=== PATIENT | male | born 1955 | race Caucasian/White ===

== ENCOUNTER → 2016-06-02 | Outpatient (CLI) | payer BC ==
--- NOTE | 2016-06-02 09:28 | CT ---
EXAMINATION TYPE: CT sinus wo con DATE OF EXAM: 06/02/2016 9:16 AM COMPARISON: NONE HISTORY: sinus congestion CT DLP: 628.7 mGycm Automated exposure control for dose reduction was used. FINDINGS: There is moderate mucosal thickening involving the ethmoid air cells and maxillary sinuses. Soft tiss ue density in the right maxillary sinus likely represents a large mucous retention cyst or polyp. Ost ium of the maxillary sinus appears occluded on the left. Appears patent on the right. Slight nasal septal deviation. No air-fluid levels. Visualized nasopharynx and oropharynx symmetric. Intracranial and intraorbital s tructures have a normal appearance. IMPRESSION: CHANGES OF MODERATE CHRONIC SINUSITIS. SINONASAL POLYPOSIS IN THE DIFFERENTIAL.
== END ==
LOC: RADCTMAIN 09:02
PROVIDERS: ATTEND Otolaryngology
DX: J32.9 Chronic sinusitis, unspecified (principal)
CPT/HCPCS: 70486

== ENCOUNTER 2016-08-06 08:03 | Day surgery (SDC) | payer BC ==
[2016-07-31 15:10] VITALS: BMI 33.3
[~2016-08-06 08:03] MED LIST: DEXAMETHASONE SOD PHOSPHATE 10 MG/ML 1 ML VIAL IV ONE; DEXAMETHASONE SOD PHOSPHATE 4 MG/ML 1 ML VIAL IV ONE; FAMOTIDINE 20 MG/2 ML VIAL IV ONE; LACTATED RINGERS 1,000 ML IV SCH; MIDAZOLAM 2 MG/2 ML VIAL IV PRN; ONDANSETRON 4 MG/2 ML VIAL IVP ONE
[2016-08-06] MEDS: OXYMETAZOLINE 0.05% NASL SPRAY 15 ML NASAL ONE ×5 (08:21→08:50)
[2016-08-06] MEDS ORDERED: LIDOCAINE 1% 20 ML VIAL (10MG/ML) FOR IV START INTRADERMA ONE (08:36)
[2016-08-06] MEDS ORDERED: ePHEDrine 50 MG/ML 1 ML AMP ONE (08:53)
[2016-08-06] MEDS ORDERED: GLYCOPYRROLATE 0.2 MG/ML 2 ML VIAL ONE (08:53)
[2016-08-06] MEDS ORDERED: MIDAZOLAM 2 MG/2 ML VIAL ONE (08:53)
[2016-08-06] MEDS ORDERED: fentaNYL (PF) 50 MCG/ML 2 ML AMP ONE (08:53)
[2016-08-06] MEDS ORDERED: DEXAMETHASONE SOD PHOS (MDV) 100 MG/10 ML VIAL ONE (08:53)
[2016-08-06] MEDS ORDERED: LIDOCAINE 1% INJ 10MG/ML (20 ML MDV) ONE (08:53)
[2016-08-06] MEDS ORDERED: PHENYLEPHRINE-0.9% NACL SYG 1 MG/10 ML SYRINGE ONE (08:53)
[2016-08-06] MEDS ORDERED: PROPOFOL 10 MG/ML 20 ML VIAL IV ONE (08:53)
[2016-08-06] MEDS ORDERED: SUCCINYLCHOLINE CHLORIDE 100 MG/5 ML SYR IV ONE (08:53)
[2016-08-06] MEDS ORDERED: ceFAZolin 1,000 MG in DEXTROSE/WATER 1 50ML.BAG IVPB ONE (09:00)
[2016-08-06] MEDS ORDERED: LIDOCAINE 1%-EPI 1:100,000 20 ML VIAL SUBMUCOSAL ONE (09:04)
[2016-08-06] MEDS ORDERED: LACTATED RINGERS 1,000 ML IV ONE (09:40)
--- NOTE | 2016-08-06 09:58 | P.OP ---
Date of Procedure: 08/06/16 Preoperative Diagnosis: Chronic sinusitis Deviated nasal septum Postoperative Diagnosis: Same Procedure(s) Performed: Septoplasty Bilateral endoscopic sinus surgery including bilateral maxillary antrostomy with removal of tissue from the maxillary sinuses bilateral anterior and posterior ethmoidectomy Implants: Anesthesia: GETA Surgeon: Vik Modi Estimated Blood Loss (ml): 20 Pathology: other (Nasal septal bone and cartilage and sinus contents) Condition: stable Disposition: PACU Indications for Procedure: This is a 60-year-old white male who has difficulties with chronic nasal airway obstruction congestion and chronic sinusitis Operative Findings: Septum deviated to the left, mucosal inflammation of the maxillary sinuses diffusely, and ethmoid labyrinths with polyps in the ethmoid sinuses diffusely bilaterally, large cyst in the right maxillary sinus which was removed Description of Procedure: The patient was brought in the operative suite and placed in a supine patient. Patient underwent induction of general anesthesia with oral endotracheal intubation without difficulty. The patient was prepped and draped in usual aseptic fashion. The orbits were in the operating field for monitoring throughout the case and computed tomography scan was on the computer screen for review throughout the case also. 1% lidocaine with 1-100,000 epinephrine was infused submucosally both sides nasal septum as well as lateral nasal wall and anterior tips of the middle turbinates bilaterally. While this is creating vasoconstrictive effect 0 endoscopic evaluation was performed bilaterally. A left hemitransfixion incision was made with the mucoperichondrial flap on the left elevated. There was some cartilaginous septal deformity to the left and this was removed leaving a full 1.5 cm caudal strut. Checking intranasally this corrected the nasoseptal deformities and the hemitransfixion incision was closed running 4-0 chromic suture. Note that done the bony nasal septum had removal of tissue already from previous septoplasty. Beginning on the left the middle turbinate was medialized with a Whiting elevator. Maxillary ostium was located with a ballpoint probe and infundibulotomy was performed followed by uncinectomy. The maxillary sinus was evaluated a 30 and 70 endoscope with tissue removed from the maxillary sinus with giraffe forceps. Anterior and posterior ethmoidectomy then performed from anterior to posterior to the level of the skull base. This included polypectomy. The nasal frontal duct was noted to be patent. Once this was completed attention was turned to the right where the procedures were followed as they were on the left including medialization middle turbinate infundibulotomy uncinectomy removal of tissue from the maxillary sinus which was a large cyst removed with giraffe forceps anterior and posterior ethmoidectomy. Once this was completed standard nasal pore nasal dressing was placed in the middle meatus under direct visualization bilaterally and Jackson airway splints coated with bacitracin ointment were placed in nasal cavities and sutured trans-septally with a 4-0 Vicryl suture. This was suctioned in oral gastric fashion. The patient was allowed to emerge from general anesthesia and found procedure well was excised in the operative suite and transferred to postop recovery area in satisfactory condition.
[2016-08-06 10:06] VITALS: RESP 16; TEMP 97.2
[2016-08-06] MEDS: HYDROmorphone 1 MG/ML 1 ML SYRINGE IVP PRN ×2 (10:34→10:46)
[2016-08-06] MEDS ORDERED: HYDROcodone/APAP 7.5-325MG 1 EACH TAB PO ONE (11:15)
[2016-08-06 11:54] VITALS: BP 139/83; PULSE 78
[2016-08-06] MEDS ORDERED: OXYMETAZOLINE 0.05% NASL SPRAY 15 ML ONE (11:54)
== END 2016-08-06 12:41 | disposition home or self-care (01) ==
LOC: OR 08:03
PROVIDERS: ATTEND Otolaryngology
DX: J34.2 Deviated nasal septum (principal); J32.9 Chronic sinusitis, unspecified; J34.1 Cyst and mucocele of nose and nasal sinus; I10 Essential (primary) hypertension; K21.9 Gastro-esophageal reflux disease without esophagitis; G47.33 Obstructive sleep apnea (adult) (pediatric); Z79.899 Other long term (current) drug therapy
CPT/HCPCS: 88305; 88300; 30520; 31267; 31255; J2250; J1100 ×2; J2405; J2001; J3010; J1170; J0690; J2370; J0330; J2704

== ENCOUNTER → 2017-09-14 | Outpatient (CLI) | payer BC ==
--- NOTE | 2017-09-14 12:57 | P.STRESS ---
- Stress Test Note Stress Test Results/Findings: Exam Performed: stress test Exam Date: 09/14/17 Reason for Exam: High chol Height: 6 ft 2 in Weight: 117.934 kg Protocol: Rakan Stage: 3 Duration of Exercise: 10:00 Resting Heart Rate: 71 Resting Blood Pressure: 132/89 Maximum Achieved Heart Rate: 140 Maximum Achieved Blood Pressure: 199/77 85% PMHR: 134 100% PMHR: 158 METS: 11.7 Technologist Comment: Stress Test Results/Findings: This is a 62-year-old gentleman with history of hypertension, hypercholesterolemia, being evaluated for cardiac status. Stress data: Baseline EKG showed sinus rhythm with normal IL interval, QRS duration. Blood pressure at rest is 130/89 with pulse rate of 71. Patient walked on a Rakan protocol for about 10 minutes achieving a maximal heart rate of 140 with blood pressure 119/77. EKGs taken during and after exercise did not reveal any changes to suggest ischemia. Patient did not express any chest pain. The test was stopped because of fatigue and shortness of breath. Final impression: #1. Negative stress test #2. Patient did not express any chest pain #3. Good exercise capacity #4. No arrhythmias detected.
== END | disposition home or self-care (01) ==
LOC: RADNMMAIN 11:20
PROVIDERS: ATTEND Internal Medicine
DX: E78.5 Hyperlipidemia, unspecified (principal)
CPT/HCPCS: 93017

== ENCOUNTER → 2018-12-07 | Outpatient (CLI) | payer BC ==
--- NOTE | 2018-12-07 13:03 | US ---
EXAMINATION TYPE: US carotid duplex BILAT DATE OF EXAM: 12/07/2018 COMPARISON: NONE CLINICAL HISTORY: R42 Veritigo. EXAM MEASUREMENTS: RIGHT: Peak Systolic Velocity (PSV) cm/sec ----- Right CCA: 73.2 ----- Right ICA: 93.2 ----- Right ECA: 89.38 ICA/CCA ratio: 1.3 RIGHT: End Diastole cm/sec ----- Right CCA: 17.6 ----- Right ICA: 40.4 ----- Right ECA: 14.9 LEFT: Peak Systolic Velocity (PSV) cm/sec ----- Left CCA: 68.4 ----- Left ICA: 86.4 ----- Left ECA: 75.4 ICA/CCA ratio: 1.3 LEFT: End Diastole cm/sec ----- Left CCA: 38.4 ----- Left ICA: 16.4 ----- Left ECA: 12.5 VERTEBRALS (direction of flow): Right Vertebral: Antegrade Left Vertebral: Antegrade Rhythm: Normal Minimal plaque with no significant velocity increases. IMPRESSION: Mild degree of grayscale atheromatous plaquing with no sonographically evident hemodynam ically significant stenosis within either visualized carotid arterial system. Criteria for Assigning % of Stenosis / Diameter reduction (Estimation based on the indirect measurements of the internal carotid artery velocities (ICA PSV). 1. Normal (no stenosis)=ICA PSV < 125 cm/s: ratio < 2.0: ICA EDV<40 cm/s. 2. Less than 50% stenosis=ICA PSV < 125 cm/s: ratio < 2.0: ICA EDV<40 cm/s. 3. 50 to 69% stenosis=ICA PSV of 125 to 230 cm/s: ration 2.0 ? 4.0: ICA EDV 40-100 cm/s. 4. Greater than 70% stenosis to near occlusion= ICA PSV > 230 cm/s: ratio > 4.0: ICA EDV > 100 cm/s. 5. Near occlusion= ICA PSV velocities may be low or undetectable: variable ratio and ICA EDV. 6. Total occlusion=unable to detect flow.
== END | disposition home or self-care (01) ==
LOC: RADUSWWP 08:54
PROVIDERS: ATTEND Internal Medicine
DX: I65.23 Occlusion and stenosis of bilateral carotid arteries (principal)
CPT/HCPCS: 93880

== ENCOUNTER → 2018-12-30 | Outpatient (CLI) | payer BC ==
--- NOTE | 2018-12-30 11:14 | MR ---
EXAMINATION TYPE: MR brain wo con DATE OF EXAM: 12/30/2018 COMPARISON: NONE HISTORY: Ataxic gait TECHNIQUE: T1-weighted sagittal, T2, FLAIR, and diffusion axial, and T2 coronal coronal views of the brain are submitted. FINDINGS: There is no evidence of acute ischemia. The ventricles, basal cisterns, and sulci overlying the conv exities are consistent with the patient's age. There is no mass effect. Craniocervical junction maintained. Sella turcica has a normal appearance. No cerebellopontine angle mass. Changes of chronic sinusitis with nasal septal deviation. IMPRESSION: 1. No acute intracranial process 2. Chronic sinusitis.
== END | disposition home or self-care (01) ==
LOC: RADMRIMAIN 09:46
PROVIDERS: ATTEND Psychiatry & Neurology Neurology
DX: R26.0 Ataxic gait (principal); J32.9 Chronic sinusitis, unspecified
CPT/HCPCS: 70551

== ENCOUNTER → 2020-04-26 | Outpatient (CLI) | payer BC ==
[2020-04-26 14:10] LABS: Basophils # (A) 0.02 X 10*3/uL (0.00-0.10); Basophils % (A) 0.4 %; Eosinophils # (A) 0.13 X 10*3/uL (0.04-0.35); Eosinophils % (A) 2.8 %; HCT 43.7 % (39.6-50.0); HGB 14.2 g/dL (13.0-17.0); Lymphocytes # (A) 2.06 X 10*3/uL (0.90-5.00); Lymphocytes % (A) 44.2 %; MCH 29.7 pg (27.0-32.0); MCHC 32.5 g/dL (32.0-37.0); MCV 91.4 fL (80.0-97.0); Mean Platelet Volume 9.2 fL (9.5-12.2); Monocytes # (A) 0.49 X 10*3/uL (0.20-1.00); Monocytes % (A) 10.5 %; Neutrophils # (A) 1.96 X 10*3/uL (1.80-7.70); Neutrophils % (A) 42.1 %; Platelet Count 299 X 10*3/uL (140-440); RBC 4.78 X 10*6/uL (4.40-5.60); RDW 13.1 % (11.5-14.5); WBC 4.66 X 10*3/uL (4.50-10.00)
[2020-04-26 14:44] LABS: African American GFR (CKD) 91.8 (60.0-200.0); Albumin 4.7 g/dL (3.80-4.90); Albumin/Globulin Ratio 1.88 (1.60-3.17); Anion Gap 6.9 mmol/L (4.00-12.00); C Reactive Protein, High Sens 1.82 mg/L (0.000-3.000); Calcium 9.3 mg/dL (8.7-10.3); Carbon Dioxide 29.1 mmol/L (21.6-31.8); Chol/HDL Ratio 3.4; Globulin 2.5 g/dL (1.6-3.3); Non-African American GFR(CKD) 79.2 (60.0-200.0); Potassium 4.1 mmol/L (3.5-5.5); Total Bilirubin 0.8 mg/dL (0.3-1.2); Total Protein 7.2 g/dL (6.2-8.2)
[2020-04-26 15:10] LABS: Folate, Serum 17.9 ng/mL
[2020-04-26 15:41] LABS: Erythrocyte Sedimentation Rate 4 mm/Hr (0-20)
== END | disposition home or self-care (01) ==
LOC: LABWHC1 08:33
PROVIDERS: ATTEND Family Medicine
DX: Z00.01 Encounter for general adult medical examination with abnormal findings (principal); G60.9 Hereditary and idiopathic neuropathy, unspecified
CPT/HCPCS: 36415; 80053; 80061; 82306; 82607; 82746; 83921; 84425; 84443; 85025; 85652; 86141

== ENCOUNTER → 2020-10-17 | Outpatient (CLI) | payer MEDICARE, BC ==
--- NOTE | 2020-10-18 06:05 | MR ---
EXAMINATION TYPE: MR knee LT wo con DATE OF EXAM: 10/17/2020 COMPARISON: None HISTORY: Lateral Left Knee Pain, increases with activity. Multiplanar multiecho imaging of the left knee with no contrast. There is mild knee joint effusion. There is subcutaneous edema anterior to the patella and proximal t ibia. The posterior cruciate ligament is intact. There is apparent complete tear of the anterior cruciate l igament. There is narrowing of the knee joint spaces. There is large horizontal and vertical tear through the posterior horn of the medial meniscus. There is degenerative thinning of the posterior horn lateral meniscus with horizontal tear. The collateral ligaments appear intact. I see no focal bone destruction. There is no evidence of a fracture. Patella is intact. IMPRESSION: Complete tear anterior cruciate ligament. Large complex tears of the posterior horn of the lateral meniscus and posterior horn of the medial me niscus. Osteoarthritic joint space narrowing. No fracture seen. Knee joint effusion.
== END | disposition home or self-care (01) ==
LOC: RADMRIMAIN 11:02
PROVIDERS: ATTEND Orthopaedic Surgery
DX: M23.322 Other meniscus derangements, posterior horn of medial meniscus, left knee (principal); M23.352 Other meniscus derangements, posterior horn of lateral meniscus, left knee; M17.12 Unilateral primary osteoarthritis, left knee

== ENCOUNTER 2020-12-19 09:34 | Day surgery (SDC) | payer MEDICARE, BC ==
[2020-12-17 14:10] VITALS: BMI 33.3
--- NOTE | 2020-12-18 14:18 | HP ---
HISTORY AND PHYSICAL DATE OF SURGERY: 12/19/2020 Thierry Mosqueda is a 65-year-old gentleman seen with progressive left knee pain. We discussed options for treatment. He elected to proceed with left knee arthroscopy. Consent was obtained. PAST MEDICAL HISTORY: Hypertension, gastroesophageal reflux disease. PAST SURGICAL HISTORY: Left knee arthroscopy. DAILY MEDICATIONS: Amlodipine, glucosamine, Nexium, Singulair. ALLERGIES: NONE. SOCIAL HISTORY: He denies tobacco use. PHYSICAL EVALUATION OF THE LEFT KNEE: Range of motion zero to 130. Tenderness along the medial joint line. Tenderness along the lateral joint line. Positive medial Eva's. Positive lateral Eva's. Ligaments stable. Hip rotation without pain. Distal neurovascular exam intact. IMAGING: Left knee radiographs reveal some osteoarthritic changes. Left knee MRI revealed large medial and lateral meniscal tears, ACL tear, intra-articular effusion. IMPRESSION: 1. Internal derangement of left knee with medial and lateral meniscal tears. 2. Left knee ACL tear. 3. Hypertension. 4. Gastroesophageal reflux disease. PLAN: Left knee arthroscopy with partial meniscectomy and debridement. MMODL / IJN: [id number] /
[2020-12-19] MEDS ORDERED: LACTATED RINGERS 1,000 ML IV ONE (10:11)
[2020-12-19] MEDS ORDERED: ONDANSETRON 4 MG/2 ML VIAL ONE (10:23)
[2020-12-19] MEDS ORDERED: DEXAMETHASONE SOD PHOSPHATE 4 MG/ML 1 ML VIAL IV ONE (10:31)
[2020-12-19] MEDS ORDERED: BUPIVACAINE (PF) 0.25% 30 ML VIAL SQ ONE ×2 (11:19→12:00)
[2020-12-19] MEDS ORDERED: ePHEDrine SULFATE/0.9% NACL/PF 50 MG/5 ML SYRINGE IV ONE (11:22)
[2020-12-19] MEDS ORDERED: MIDAZOLAM 2 MG/2 ML VIAL ONE (11:22)
[2020-12-19] MEDS ORDERED: LIDOCAINE 1% INJ 10MG/ML (20 ML MDV) ONE (11:22)
[2020-12-19] MEDS ORDERED: PROPOFOL 10 MG/ML 20 ML VIAL IV ONE (11:22)
[2020-12-19] MEDS ORDERED: fentaNYL (PF) 50 MCG/ML 2 ML AMP ONE (11:22)
[2020-12-19 12:14] VITALS: TEMP 97.4
--- NOTE | 2020-12-19 12:18 | P.OP ---
Date of Procedure: 12/19/20 Preoperative Diagnosis: Internal derangement left knee Postoperative Diagnosis: 1. Complex lateral meniscal tear left knee 2. ACL tear left knee 3. Reactive synovitis medial, lateral and suprapatellar compartments left knee Procedure(s) Performed: 1. Arthroscopic partial lateral meniscectomy left knee 2. Arthroscopic debridement ACL tear left knee 3. Arthroscopic partial synovectomy medial, lateral and suprapatellar compartments left knee Anesthesia: GETA, local Surgeon: Vivek Elizabeth Estimated Blood Loss (ml): 7 Pathology: none sent Condition: stable Disposition: PACU Indications for Procedure: 65-year-old patient seen with progressive left knee pain. After having treatment options discussed, he elected to proceed with arthroscopy. Operative Findings: See description of procedure Description of Procedure: Patient was taken to the operative suite. Patient underwent a general anesthetic by the department of anesthesia. Patient was given preoperative antibiotics. The left lower extremity was placed in a well-padded arthroscopic leg collins. The left leg was prepped and draped in the normal sterile orthopedic fashion. A lateral parapatellar and suprapatellar incision was made. Trochars were inserted. Arthroscopy was initiated. Suprapatellar pouch revealed diffuse thick reactive synovitis. The patellofemoral joint appeared to articulate congruently. There was grade 2/3 chondromalacia the patella with no osteochondral tears and grade 3/4 chondromalacia of the femoral sulcus with no significant osteochondral tears.. The scope was guided into the medial gutter. No loose bodies or plica were identified. The scope was then guided into the medial compartment. A medial parapatellar incision was made. Trocar inserted followed by probe. There was a small area of superficial fraying posterior horn/midbody junction medial meniscus. There were grade 1/2 chondral moist changes involving the medial compartment. There was some reactive synovitis anteriorly. I introduced a motorized shaver and debrided out that area superficial fraying medial meniscus followed by performing a partial synovectomy decompressing reactive synovitis. Shaver was removed. There was good decompression of the synovitis. Scope and probe were then guided into the intercondylar notch. There was partial tearing of the anterior cruciate ligament. I introduced a motorized shaver and debrided that out. I sensory debrided out the entire ACL is was completely torn. The PCL was found to be stable.. The scope and probe were then guided into lateral compartment. There was a complex tear involving the posterior horn and midbody lateral meniscus. Chondromalacia changes lateral compartment with no osteochondral tears. There was thick reactive synovitis anteriorly. I performed a partial lateral m eniscectomy getting down to stable meniscal tissue. I performed a partial synovectomy decompressing the reactive synovitis. The residual meniscus was stable. There was good decompression of synovitis. The scope was in guided back into the suprapatellar compartment. I introduced a motorized shaver and the suprapatellar compartment. I debrided some piecemeal fragments of meniscus I encountered. I performed a partial synovectomy. Shaver was removed. There was good decompression of the synovitis. I took one more look on the entire knee, no residual debris. Instruments were now removed from the joint. The joint was infiltrated with .25% Marcaine. Steri-Strips were applied to the portal sites. Sterile dressings were applied. The patient was placed into a MARIANO hose. No tourniquet was utilized. The patient was awakened, transferred to a bed and taken to recovery stable satisfactory condition.
[2020-12-19 13:49] VITALS: BP 133/88; PULSE 70; RESP 20
== END 2020-12-19 14:05 | disposition home or self-care (01) ==
LOC: OR 09:34
PROVIDERS: ATTEND Orthopaedic Surgery
DX: M23.201 Derangement of unspecified lateral meniscus due to old tear or injury, left knee (principal); S83.512A Sprain of anterior cruciate ligament of left knee, initial encounter; M65.862 Other synovitis and tenosynovitis, left lower leg; I10 Essential (primary) hypertension; K21.9 Gastro-esophageal reflux disease without esophagitis; Z79.899 Other long term (current) drug therapy; Z98.890 Other specified postprocedural states; Z79.1 Long term (current) use of non-steroidal anti-inflammatories (NSAID); Z79.82 Long term (current) use of aspirin
CPT/HCPCS: 29881; 29888; 29876; J2250; J1100; J0690; J2405; J2001; J3010; J2704

== ENCOUNTER 2021-03-19 08:25 | Day surgery (SDC) | payer MEDICARE, BC ==
[2021-03-14 10:19] VITALS: BMI 33.3
[~2021-03-19 08:25] MED LIST changes: -DEXAMETHASONE SOD PHOSPHATE 10 MG/ML 1 ML VIAL IV ONE; -DEXAMETHASONE SOD PHOSPHATE 4 MG/ML 1 ML VIAL IV ONE; -FAMOTIDINE 20 MG/2 ML VIAL IV ONE; -MIDAZOLAM 2 MG/2 ML VIAL IV PRN; -ONDANSETRON 4 MG/2 ML VIAL IVP ONE
[2021-03-19 08:52] VITALS: RESP 16; TEMP 97.1
[2021-03-19] MEDS ORDERED: LIDOCAINE 1% (10MG/ML) FOR IV START INTRADERMA ONE (08:55)
[2021-03-19] MEDS ORDERED: PROPOFOL 10 MG/ML 20 ML VIAL IV ONE (09:01)
--- NOTE | 2021-03-19 09:05 | P.GSHP ---
History of Present Illness H&P Date: 03/19/21 Chief Complaint: Colon cancer screening 65-year-old male here today for colonoscopy. Last colonoscopy 5-10 years ago. Says that study was normal. No bowel complaints. No family history of colon cancer. Past Medical History Past Medical History: GERD/Reflux, Hypertension, Osteoarthritis (OA), Sleep Apnea/CPAP/BIPAP Additional Past Medical History / Comment(s): uses c-pap machine, environmental allergies. 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 Past Anesthesia/Blood Transfusion Reactions: No Reported Reaction Past Psychological History: Anxiety Smoking Status: Never smoker Past Alcohol Use History: Occasional Past Drug Use History: None Reported - Past Family History Mother Family Medical History: No Reported History Medications and Allergies Home Medications Medication Instructions Recorded Confirmed Type Aspirin [Adult Low Dose Aspirin EC] 81 mg PO DAILY 07/31/16 03/19/21 History Glucosam/Mac-Msm1/C/Angel/Bosw 1 each PO DAILY 07/31/16 03/19/21 History [Glucosamine-Chondroitin Tablet] Magnesium 400 mg PO DAILY 07/31/16 03/19/21 History Montelukast [Singulair] 10 mg PO DAILY 07/31/16 03/19/21 History Naproxen Sodium [Aleve] 440 mg PO DAILY 07/31/16 03/19/21 History amLODIPine BESYLATE/BENAZEPRIL 1 cap PO QAM 07/31/16 03/19/21 History [amLODIPine BESYLATE/BENAZEPRIL 10-20 mg] Cholecalciferol [Vitamin D3 (125 125 mcg PO DAILY 03/14/21 03/19/21 History Mcg = 5000 Iu)] Finasteride [Proscar] 5 mg PO DAILY 03/14/21 03/19/21 History Loratadine [Claritin] 10 mg PO DAILY 03/14/21 03/19/21 History Multivit-Min/Folic/Vit K/Lycop 1 each PO DAILY 03/14/21 03/19/21 History [Men's Multivitamin Tablet] Omeprazole 40 mg PO DAILY 03/14/21 03/19/21 History Venlafaxine HCl [Effexor XR] 150 mg PO DAILY 03/14/21 03/19/21 History Allergies Allergy/AdvReac Type Severity Reaction Status Date / Time No Known Allergies Allergy Verified 03/19/21 08:48 Surgical - Exam Vital Signs Temp Pulse Resp BP Pulse Ox 97.1 F L 72 16 130/82 95 03/19/21 08:50 03/19/21 08:50 03/19/21 08:50 03/19/21 08:50 03/19/21 08:50 Physical exam: General: Well-developed, well-nourished HEENT: Normocephalic, sclerae nonicteric Abdomen: Nontender, nondistended Extremities: No edema Neuro: Alert and oriented Assessment and Plan (1) Colon cancer screening Narrative/Plan: Will proceed with colonoscopy. Current Visit: Yes Status: Acute Code(s): Z12.11 - ENCOUNTER FOR SCREENING FOR MALIGNANT NEOPLASM OF COLON SNOMED Code(s): 602959048
--- NOTE | 2021-03-19 09:23 | P.PCN ---
Date of Procedure: 03/19/21 Procedure(s) Performed: PREOPERATIVE DIAGNOSIS: Colon cancer screening POSTOPERATIVE DIAGNOSIS: Normal exam however poor colonic prep PROCEDURE: Colonoscopy ANESTHESIA: MAC SURGEON: Ash Suárez M.D. SPECIMENS: None ENDOSCOPIC PROCEDURE: The patient was placed on the endoscopy table in the left decubitus position. The Olympus colonoscope was inserted into the anus and passed under direct visualization to the base of the cecum. The appendiceal orifice was visualized. From that point the scope was slowly withdrawn inspecting all surfaces carefully. There were no neoplastic inflammatory or polypoid lesions throughout the cecum, ascending, transverse, descending, sigmoid and rectum. There was no visible diverticulosis noted. The patient's prep was poor with retained liquid and solid stool seen scattered throughout. I would estimate 60% of the mucosal surfaces were visualized. Digital rectal examination was normal. The patient was taken to the recovery room in stable condition per anesthesia guidelines. RECOMMENDATIONS: Resume diet. Will discuss endoscopic findings with the patient . Consider repeat colonoscopy or cologuard testing in the future.
[2021-03-19 09:46] VITALS: BP 115/73; PULSE 58
== END 2021-03-19 10:03 | disposition home or self-care (01) ==
LOC: ORWHC2ENDO 08:25
PROVIDERS: ATTEND Surgery
DX: Z12.11 Encounter for screening for malignant neoplasm of colon (principal); I10 Essential (primary) hypertension; K21.9 Gastro-esophageal reflux disease without esophagitis; N40.0 Benign prostatic hyperplasia without lower urinary tract symptoms; G62.9 Polyneuropathy, unspecified; F41.9 Anxiety disorder, unspecified; G47.33 Obstructive sleep apnea (adult) (pediatric); Z89.021 Acquired absence of right finger(s); M19.90 Unspecified osteoarthritis, unspecified site; Z98.890 Other specified postprocedural states; Z79.1 Long term (current) use of non-steroidal anti-inflammatories (NSAID); Z79.82 Long term (current) use of aspirin; Z79.899 Other long term (current) drug therapy
CPT/HCPCS: J2704; G0121; 45378

== ENCOUNTER → 2021-08-13 | Outpatient (CLI) | payer MEDICARE, BC ==
[2021-08-13 18:42] LABS: Basophils # (A) 0.03 X 10*3/uL (0.00-0.10); Basophils % (A) 0.5 %; Eosinophils # (A) 0.16 X 10*3/uL (0.04-0.35); Eosinophils % (A) 2.9 %; HCT 46.7 % (39.6-50.0); Immature Grans, Automated 0.4 %; Lymphocytes # (A) 1.71 X 10*3/uL (0.90-5.00); Lymphocytes % (A) 30.9 %; MCH 29.6 pg (27.0-32.0); MCHC 32.1 g/dL (32.0-37.0); MCV 92.1 fL (80.0-97.0); Mean Platelet Volume 9.4 fL (9.5-12.2); Monocytes # (A) 0.51 X 10*3/uL (0.20-1.00); Monocytes % (A) 9.2 %; NRBC Per 100 WBC 0 /100 WBCS (0.0-0.0); Neutrophils % (A) 56.1 %; Platelet Count 304 X 10*3/uL (140-440); RBC 5.07 X 10*6/uL (4.40-5.60); RDW 12.8 % (11.5-14.5); WBC 5.53 X 10*3/uL (4.50-10.00)
[2021-08-13 18:55] LABS: INR 0.93 (0.90-1.11); Prothrombin Time 10.3 sec (9.9-11.9)
[2021-08-13 19:02] LABS: African American GFR (CKD) 108.6 (60.0-200.0); Anion Gap 12.4 mmol/L (10.00-18.00); BUN/Creat Ratio 31.5 Ratio (12.00-20.00); Blood Urea Nitrogen 25.2 mg/dL (9.0-27.0); Calcium 9.5 mg/dL (8.7-10.3); Carbon Dioxide 22.6 mmol/L (20.0-27.5); Non-African American GFR(CKD) 93.7 (60.0-200.0); Potassium 4.4 mmol/L (3.5-5.5)
== END | disposition home or self-care (01) ==
LOC: LABPAT 11:59
PROVIDERS: ATTEND Orthopaedic Surgery
DX: Z01.818 Encounter for other preprocedural examination (principal); I44.7 Left bundle-branch block, unspecified; M16.11 Unilateral primary osteoarthritis, right hip; R94.31 Abnormal electrocardiogram [ECG] [EKG]
CPT/HCPCS: 80048; 85025; 85610; 93005

== ENCOUNTER → 2021-08-15 | Outpatient (CLI) | payer MEDICARE, BC | END | disposition home or self-care (01) | LOC: LABPAT 11:54 | PROVIDERS: ATTEND Orthopaedic Surgery | DX: Z01.812 Encounter for preprocedural laboratory examination (principal); M16.11 Unilateral primary osteoarthritis, right hip | CPT/HCPCS: 87070 ==

== ENCOUNTER 2021-08-19 05:50 | Day surgery (SDC) | payer MEDICARE, BC ==
[2021-08-14 14:54] VITALS: BMI 34.0
--- NOTE | 2021-08-18 12:54 | HP ---
HISTORY AND PHYSICAL DATE OF SURGERY: 08/19/2021 Thierry Mosqueda is a 65-year-old patient seen with symptomatic right hip osteoarthritis. We discussed options for treatment. He elected to proceed with direct anterior right total hip arthroplasty. Consent regarding the procedure was obtained. PAST MEDICAL HISTORY: Hypertension. PAST SURGICAL HISTORY: Knee arthroscopy. DAILY MEDICATIONS: Amlodipine, Aleve, vitamins. ALLERGIES: NONE. SOCIAL HISTORY: He denies tobacco use. PHYSICAL EVALUATION OF THE RIGHT HIP: He has diffuse tenderness, limited range of motion with severe pain. Positive hip impingement sign. Straight-leg raise is negative. His distal neurovascular exam is intact. Radiographs of the right hip reveal severe osteoarthritic changes. IMPRESSION: 1. Right hip osteoarthritis. 2. Hypertension. PLAN: Direct anterior right total hip arthroplasty. MMODL / IJN: [id number] /
[~2021-08-19 05:50] MED LIST changes: +ACETAMINOPHEN TAB 500 MG TAB PO PRN; +DEXAMETHASONE SOD PHOSPHATE 4 MG/ML 1 ML VIAL IV ONE; +LIDOCAINE 1% (10MG/ML) FOR IV START INTRADERMA PRN; +MELOXICAM 7.5 MG TAB PO PRN; +METOCLOPRAMIDE 5 MG/ML 2 ML VIAL IVP PRN; +ONDANSETRON 4 MG/2 ML VIAL IVP ONE; +TRANEXAMIC ACID IN NACL,ISO-OS 1,000 MG in SALINE 1 100ML.BAG IVPB PRN; +ceFAZolin 3 GM in SODIUM CHLORIDE 0.9% 100 ML IVPB PRN
[2021-08-19] MEDS ORDERED: MIDAZOLAM 2 MG/2 ML VIAL IVP ONE (07:01)
[2021-08-19] MEDS ORDERED: fentaNYL (PF) 50 MCG/ML 2 ML AMP ONE (07:25)
[2021-08-19] MEDS ORDERED: LIDOCAINE 2% INJ 20 MG/ML (2 ML VIAL) ONE (07:25)
[2021-08-19] MEDS ORDERED: DEXAMETHASONE SOD PHOSPHATE 4 MG/ML 1 ML VIAL ONE (07:25)
[2021-08-19] MEDS ORDERED: TRANEXAMIC ACID IN NACL,ISO-OS 1,000 MG/100 ML BAG ONE (07:25)
[2021-08-19] MEDS ORDERED: MIDAZOLAM 2 MG/2 ML VIAL ONE (07:25)
[2021-08-19] MEDS ORDERED: ROCURONIUM 10 MG/ML (5 ML VIAL) IV ONE (07:25)
[2021-08-19] MEDS ORDERED: GLYCOPYRROLATE 0.2 MG/ML 2 ML VIAL ONE (07:25)
[2021-08-19] MEDS ORDERED: NEOSTIGMINE 1 MG/ML 10 ML VIAL ONE (07:25)
[2021-08-19] MEDS ORDERED: ePHEDrine 50 MG/ML 1 ML VIAL ONE (07:25)
[2021-08-19] MEDS ORDERED: PROPOFOL 10 MG/ML 20 ML VIAL IV ONE (07:25)
[2021-08-19] MEDS ORDERED: ROPIVACAINE 5 MG/ML 30 ML VIAL ONE (07:25)
[2021-08-19] MEDS ORDERED: PHENYLEPHRINE-0.9% NACL SYG 1,000 MCG/10 ML SYRINGE ONE (07:25)
[2021-08-19] MEDS ORDERED: HYDROmorphone (PF) 1 MG/ML ONE (07:25)
[2021-08-19] MEDS ORDERED: SUCCINYLCHOLINE CHLORIDE VIAL 200 MG/10 ML VIAL IV ONE (07:25)
[2021-08-19] MEDS ORDERED: ceFAZolin 1,000 MG in SODIUM CHLORIDE 0.9% 1,000 ML IRRIGATION ONE (08:01)
--- NOTE | 2021-08-19 08:31 | P.ANPRN ---
Procedure Note - Anesthesia - Nerve Block Performed Right Erector Spinae Single Time Out Performed: Yes Date of Procedure: 08/19/21 Procedure Start Time: 07:00 Procedure Stop Time: :07 Location of Patient: PreOp Indication: Requested by Surgeon Specifically requested for management of pain by DrAme: Vivek Elizabeth Sedation Type: Sedate with meaningful contact maintained Preparation: Sterile Prep Position: Prone Needle Types: Pajunk Needle Gauge: 21 Ultrasound used to visualize needle placement: Yes Ultrasound used to observe medication spread: Yes Injectate: 0.5% Ropivacaine (see comment for volume) (30 ml + dexamethasone 4 mg) Blood Aspirated: No Pain Paresthesia on Injection Noted: No Resistance on Injection: Normal Image Stored and Saved: Yes Events: Uneventful and Well Tolerated
[2021-08-19] MEDS ORDERED: LACTATED RINGERS 1,000 ML IV ONE ×2 (08:51→09:22)
[2021-08-19] MEDS ORDERED: HYDROcodone/APAP 5-325MG 1 EACH TAB PO PRN (09:22)
[2021-08-19] MEDS ORDERED: NALOXONE 0.4 MG/ML 1 ML VIAL IV PRN (09:22)
[2021-08-19] MEDS ORDERED: HYDROmorphone 1 MG/ML 1 ML SYRINGE IVP PRN (09:22)
[2021-08-19] MEDS ORDERED: HYDROcodone/APAP 7.5-325MG 1 EACH TAB PO PRN (09:22)
[2021-08-19] MEDS ORDERED: ONDANSETRON 4 MG/2 ML VIAL IVP PRN (09:22)
[2021-08-19] MEDS ORDERED: HYDROmorphone 0.5 MG/0.5 ML SYRINGE IVP PRN ×2 (09:22)
--- NOTE | 2021-08-19 09:23 | P.OP ---
Date of Procedure: 08/19/21 Preoperative Diagnosis: Right hip osteoarthritis Postoperative Diagnosis: Right hip osteoarthritis Procedure(s) Performed: Direct anterior right total hip arthroplasty Implants: 1. Depuy Corail KLA size 15 high offset collar press-fit femoral stem 2. Depuy pinnacle 60 mm press-fit acetabular shell 3. Depuy pinnacle polyethylene acetabular liner +4 neutral 36 mm ID 60 mm OD 4. Biolox delta ceramic femoral head +5 36 mm Anesthesia: GETA, regional (Fascia iliaca block) Surgeon: Vivek Elizabeth Riveting Machine Operator Tape Control #1: Jamil Adan Estimated Blood Loss (ml): 95 Pathology: other (Femoral head) Condition: stable Disposition: PACU Indications for Procedure: 65-year-old patient seen with symptomatic right hip osteoarthritis. After having treatment options discussed, he elected to proceed with total hip arthroplasty Operative Findings: see description of procedure Description of Procedure: The patient was taken to the operative suite after having undergone a fascia iliaca block for postoperative pain management by the department of anesthesia. Patient underwent a general anesthetic by the department of anesthesia. Patient was then transferred to the [place] table. Patient was given preoperative IV antibiotics and TXA. Both lower extremities were placed in standard leg spars. The hip was then prepped and draped in the normal sterile orthopedic fashion. A standard anterior incision was made beginning 3 cm lateral and 1 cm distal to the ASIS extending 10 cm. Dissection was then carried down through the subcutaneous soft tissues down to the fascia overlying the tensor fascia mikey. An incision was now made through the fascia. Careful dissection was taken down exposing the tensor fascia mikey muscle. A Cobra retractor was now placed along the medial femoral neck and a second one along the lateral femoral neck. The venous circumflex vessels were now identified, cauterized and clipped. We identified the anterior hip capsule. An incision was made through the hip capsule along the lateral border. I performed a partial anterior capsulectomy. Retractors were now placed around the femoral neck itself. A femoral neck cut was now made with a sagittal saw. It was completed with an osteotome at the lateral neck area. The femoral head was now removed without difficulty. The extremity was now rotated to 60 of external rotation. It was locked in positi on. Residual labrum was now debrided out. Serial reaming was performed of the acetabulum while Jamil GARCIA assisted holding an anterior retractor for exposure. Once we reached the appropriate size and a trial was position and fit nicely. The appropriate size was now chosen opened and made available. It was introduced into the acetabulum without difficulty. The C-arm/fluoroscopy was now brought into the operative field. We made sure we had a true AP pelvic view. We now under direct C-arm/fluoroscopy introduced into the acetabular component with appropriate version and inclination. I held the cup in appropriate position while Jamil GARCIA used a mallet to seat the acetabular component. I noted the component now to be well seated and stable. Acetabular cup introduce her was removed. The C-arm was pulled back. An appropriate liner was introduced and clicked into position. It was felt to be stable. At this point retractors were removed. The extremity was now placed into 140 external rotation with no traction. The leg was now dropped to the ground and adducted. Appropriate retractors were now positioned along the proximal femur. We also placed our femoral look into position. Additional capsular releasing was performed to gain access to the proximal femur. We now used a box osteotome. A canal finder was now utilized. Serial broaching was now performed with the assistance of Jamil GARCIA tapping the broaches down with a mallet while held the broach in appropriate rotation and position. This was done until we reached the appropriate size with good overall rotational stability. Appropriate calcar planing was performed. A trial head/neck was placed into position. The hip was now reduced. The C-arm/fluoroscopy was brought back into the operative field. I obtained an AP pelvis demonstrating adequate leg length alignment. The trial components appeared appropriately sized and appropriately positioned. The C-arm/fluoroscopy was pulled back. Retractors were repositioned and the hip was dislocated. The leg was again taken down to the ground and adducted. Appropriate retractors were repositioned as well as the femoral hook. All trial components were removed. The femoral implant was opened along with the femoral head. The femoral implant was introduced on the appropriate handle into our pre-broached area. I held the component position while Jamil GARCIA used a mallet to seat the femoral component. The femoral component was now noted to be well seated and stable.. The femoral head was introduced with good positioning and fixation noted. Retractors were now removed. The hip was now reduced. There appeared be good positioning of the hip confirmed on intraoperative fluoroscopy. Spot films were obtained to document this. A second gram of TXA was given. The deep and superficial soft tissues were infiltrated with local analgesic. Bipolar cautery had been utilized intermittently through the procedure for hemostasis. The wound was irrigated copiously with pulse lavage mechanical irrigation. The fascia was repaired with Vicryl suture. The subcutaneous soft tissues were repaired in layers with Vicryl suture. The skin was approximated with pernio/Dermabond. Sterile dressings were applied. Patient was then awakened, transferred to a bed and taken to recovery in stable condition. Jamil GARCIA assisted with the complex procedure.
[2021-08-19] MEDS: HYDROmorphone 0.5 MG/0.5 ML SYRINGE IVP PRN ×3 (09:47→10:05)
[2021-08-19 09:53] VITALS: TEMP 97.2
--- NOTE | 2021-08-19 11:03 | FL ---
EXAMINATION TYPE: FL guidance operating room, XR Hip Limited RT DATE OF EXAM: 08/19/2021 COMPARISON: 07/19/2021 HISTORY: 65-year-old male injured right hip replacement FINDINGS: Intraoperative fluoroscopy with 4 images provided during right hip total arthroplasty. FLUOROSCOPY Fluoroscopy time of 18.8 seconds was used during anterior right hip replacement. 4 image/s document/ s the procedure. IMPRESSION: Fluoroscopy as above.
[2021-08-19] MEDS: ceFAZolin 3 GM in SODIUM CHLORIDE 0.9% 100 ML IVPB ONE ×2 (11:28→12:00)
[2021-08-19 12:18] VITALS: RESP 16
[2021-08-19 12:34] VITALS: BP 129/76; PULSE 78
== END 2021-08-19 13:30 | disposition home health service (06) ==
LOC: OR 05:50
PROVIDERS: ATTEND Orthopaedic Surgery
DX: M16.11 Unilateral primary osteoarthritis, right hip (principal); I10 Essential (primary) hypertension; Z98.890 Other specified postprocedural states; Z79.899 Other long term (current) drug therapy; G47.33 Obstructive sleep apnea (adult) (pediatric); N40.0 Benign prostatic hyperplasia without lower urinary tract symptoms; F41.9 Anxiety disorder, unspecified; K21.9 Gastro-esophageal reflux disease without esophagitis; Z79.82 Long term (current) use of aspirin; Z79.1 Long term (current) use of non-steroidal anti-inflammatories (NSAID)
CPT/HCPCS: 27130; 97110; 97161; 64999; 76942; 86900; 86901; 86850; 88300; 73501; C1776; J2250; J0330; J1100; J2710; J0690 ×2; J2405; J3010; J1170 ×2; J2795; J2370; J2704; J2001

== ENCOUNTER → 2021-12-09 | Outpatient (CLI) | payer MEDICARE, BC ==
--- NOTE | 2021-12-09 12:44 | US ---
EXAMINATION TYPE: US liver DATE OF EXAM: 12/09/2021 COMPARISON: NONE CLINICAL HISTORY: 66-year-old male R74.01 elevated liver transaminase levels. TECHNIQUE: Multiple sonographic images of the right upper quadrant are obtained. FINDINGS: EXAM MEASUREMENTS: Liver Length: 17.3 cm Gallbladder Wall: 0.22 cm CBD: 0.17 cm Right Kidney: 10.4 x 5.7 x 5.7 cm Pancreas: Tail obscured by overlying bowel gas. Visualized portions show no gross abnormality. Liver: Increased attenuation, decreased visualization of vessels suggestive of fatty infiltrate. Hy poechoic area near gallbladder suggestive of focal fatty sparring measuring 2.2 x 1.8 x 0.70cm Gallbladder: No abnormal gallbladder distention, wall thickening, pericholecystic fluid, or shadowin g calculi. Evidence for sonographic Perez's sign: No CBD: wnl Right Kidney: wnl IMPRESSION: 1. Borderline hepatomegaly (17.3 cm) with at least moderate hepatic steatosis. 2. No gallstones or biliary ductal dilatation.
== END | disposition home or self-care (01) ==
LOC: RADUSWWP 06:53
PROVIDERS: ATTEND Family Medicine
DX: K76.0 Fatty (change of) liver, not elsewhere classified (principal)
CPT/HCPCS: 76705